=== PATIENT | male | born 1995 | race Caucasian/White ===

== ENCOUNTER 2020-10-31 11:43 | Emergency (ER) | payer OTHER ==
[~2020-10-31] VITALS: Ht 180.3 cm; Wt 117.9 kg
[2020-10-31] MEDS ORDERED: MEDROLDOSEPACK PO (12:15)
[2020-10-31] MEDS ORDERED: FLEXERIL PO (12:15)
[2020-10-31 12:36] VITALS: BP 130/70
== END 2020-10-31 12:36 | disposition home or self-care (01) ==
LOC: M.ERS 11:43
DX: M62.830 Muscle spasm of back (principal)